=== PATIENT | female | born 1955 | race Caucasian/White ===

== ENCOUNTER → 2018-07-05 | Outpatient (CLI) | payer OTHER, MEDICARE | LOC: BRMIMAGING 10:27 | PROVIDERS: ATTEND Family Medicine | DX: Z12.31 Encounter for screening mammogram for malignant neoplasm of breast (principal) ==

== ENCOUNTER → 2018-11-29 | Outpatient (CLI) | payer OTHER, MEDICARE | LOC: CIMAGING 08:46 | PROVIDERS: ATTEND Family Medicine | DX: M25.552 Pain in left hip (principal) | CPT/HCPCS: 73521-PO ==

== ENCOUNTER → 2019-01-22 | Outpatient (CLI) | payer OTHER, MEDICARE | LOC: EMCIMAGING 08:45 ==